=== PATIENT | male | born 1970 | race Caucasian/White ===

== ENCOUNTER 2022-06-27 11:25 | Emergency (ER) | payer OTHER, SELFPAY ==
[2022-06-27 11:29] VITALS: BP 151/97; PULSE 66; RESP 16; TEMP 36.2; O2SAT 98; BMI 24.3
--- NOTE | 2022-06-27 11:38 | W.ED.UPPEXIN ---
HPI - Extremity Injury (Upper) General: Chief Complaint: Extremity Injury, Upper Stated Complaint: finger injury Time Seen by Provider: 06/27/22 11:37 Source: patient Mode of arrival: ambulatory Limitations: no limitations History of Present Illness: Patient is a nice 52-year-old male who presents to ED today for a right finger injury that he sustained just prior to arrival at work when he states the finger got caught between 2 boards. He states this is a workers comp injury. Last tetanus was roughly 10 years ago. complaint: injury to: right and finger Onset (ago): hour(s) Other injuries: none Place: work Severity: moderate Relieving factors: none Exacerbating factors: none Context: direct blow and crush Associated symptoms: Reports no associated symptoms Treatments prior to arrival: bandage Review of Systems Musc: Reports: extremity pain (R index finger) Skin/Breast: Reports: other (finger tip amputation) Neuro: Denies: numbness in extremities or sensory changes Physical Exam Const: COMMON NORMALS: no acute distress, average body habitus, patient oriented x3, no limitations, healthy appearing, alert and well nourished Extremity: GENERAL: Yes normal exam except as noted RIGHT UPPER EXTREMITY: Yes hand & digits OTHER: pt has distal finger pad/tip amputation; no exposed bone; finger tip portion is brought with patient and it is non-vascular and essentially just a small piece of fat/skin and most likely would be viable with attachment; bleeding controlled; no nail damage Neuro: COMMON NORMALS: patient oriented x3, moves all extremities, no focal motor deficits and no sensory deficits noted SENSORIUM/ORIENTATION: Yes alert Course Vital Signs: Vital signs: Vital Signs Temperature 97.1 F L 06/27/22 11:29 Pulse Rate 66 06/27/22 11:29 Respiratory Rate 14 06/27/22 11:56 Blood Pressure 151/97 06/27/22 11:29 Pulse Oximetry 98 06/27/22 11:29 MDM - Extremity Injury (Upper) Medical Decision Making Wound was copiously irrigated. It will need to heal by secondary intent. Tetanus is updated. He was given IM Ancef. XR showing a small nondisplaced distal tuft fracture. He will also be placed on oral antibiotics and follow-up with orthopedics for open fracture. Strict return ED precautions given. Lab Data Radiology Impressions Finger X-Ray 06/27/22 11:44 IMPRESSION: 1. Small nondisplaced distal tuft fracture of the index finger with distal soft tissue injury. Discharge Plan Discharge Patient Disposition: Home Clinical Impression: Open fracture of distal phalanx Amputation of tip of finger Qualifiers: Encounter type: initial encounter Qualified Code(s): S68.119A - Complete traumatic metacarpophalangeal amputation of unspecified finger, initial encounter Condition: Stable Prescriptions: New tramadol 50 mg tablet 50 mg PO Q6H PRN (Reason: pain) Qty: 14 0RF cephalexin 500 mg capsule 500 mg PO Q6H 7 Days Qty: 28 0RF Discharge Orders: Discharge ED (Routine); Ordered 06/27/22 Ordered By: Eloina Pimentel Patient Instructions: Opioid Safety, Pain Management Activity Restrictions/Additional Instructions: As we discussed case management should contact you in regards to your follow-up orthopedic appointment. Follow up with Worker's Comp as directed. Begin your antibiotics immediately. Monitor for signs of infection such as redness, swelling, increased pain, purulent drainage, fevers, red or pink streaking up your hand or arm, or any other concerns you may have. Please seek medical reevaluation if these occur. Coding Level of Care Code ED Traffic Engineering Technician for Sandy Winter
--- NOTE | 2022-06-27 11:44 | XR_ITS ---
WS: [id number] Exam: XR finger RT min 2V [id number] Date/Time of Exam: 06/27/2022 11:44 AM Reason For Exam: trauma, index Small nondisplaced distal tuft fracture of the index finger noted. Also noted is soft tissue injury t o the distal index finger. XR/XR finger RT min 2V [id number] IMPRESSION: 1. Small nondisplaced distal tuft fracture of the index finger with distal soft tissue injury.
[2022-06-27] MEDS: tetanus-dipt-pertussis 0.5 mL SDV IM (11:55)
[2022-06-27 11:56] VITALS: RESP 14
[2022-06-27] MEDS: morphine 4 mg/mL SDV 1 mL IM (11:56)
--- NOTE | 2022-06-27 12:06 | PC.NURSE ---
soaked finger with NS and betadine. flushed with 50 mL of NS after soak. cleaned wound and around wound. dressed in vaseline gauze, telfa, and coban.
--- NOTE | 2022-06-27 13:18 | DCPLANNER ---
Addendum entered by Kathe Cristina 07/02/22 14:47: first assistant manager received the following message from ortho regarding follow up appointment: Per Omar at [facility] - they need orders for the referral to ortho and any supporting documentation faxed to [phone]. Once she gets this she can submit to their work comp and call us back with approval. We will call patient and schedule w/ ar[facility]. This information was faxed on [phone]. Original Note: first assistant manager had message to schedule a follow up appointment for patient with ortho. first assistant manager sent patients information to the front office staff at ortho. Patients information will be printed and reviewed. Clinic will call patient with appointment information.
--- NOTE | 2022-06-28 13:19 | DCPLANNER ---
clinical product manager called patient due to no primary care physician - no answer at this time.
== END 2022-06-27 13:10 | disposition home or self-care (01) ==
PROVIDERS: Emergency Provider Physician Assistant
DX: S62.660B Nondisplaced fracture of distal phalanx of right index finger, initial encounter for open fracture (principal); S68.120A Partial traumatic metacarpophalangeal amputation of right index finger, initial encounter; W23.0XXA Caught, crushed, jammed, or pinched between moving objects, initial encounter; Z23 Encounter for immunization
CPT/HCPCS: 73140; 90471; 90715; 96372; 99284; J2270